=== PATIENT | female | born 1990 | race Two or more races ===

== ENCOUNTER 2025-06-07 08:34 | Inpatient (IN) | payer OTHER, MEDICAID ==
[~2025-06-07] VITALS: Ht 177.8 cm; Wt 149.0 kg
[2025-06-07] VITALS (28 sets, daily range): BP systolic 130–158; BP diastolic 71–90; PULSE 122–140; RESP 15–38; TEMP 98.6–99.4; O2SAT 86–97
[2025-06-07 09:37] LABS: Hematocrit 49.6 % (36.0-46.0); Hemoglobin 16.7 g/dL (12.2-16.2); Mean Corpuscular Hemoglobin 31.4 pg (28.0-32.0); Mean Corpuscular Volume 93.5 fL (80.0-100.0); Nucleated Red Blood Cells % 0.1 %
[2025-06-07] MEDS: ONDANSETRON HCL 4 MG/2 ML VIAL IV ONE (09:40)
[2025-06-07] MEDS: hydrALAZINE HCL 20 MG/ML VL IV ONE (09:41)
--- NOTE | 2025-06-07 09:45 | ED.PDOC ---
GI ASSESSMENT HPI Comments Chivo Santizo is a 35-year-old female, with past medical history of hypertension, morbid obesity and hyperlipidemia. The patient came to the ED with chief complain of 2 days of abdominal pain, 6/10, stabbing-like, localized in the epigastric area, that irradiates to the right upper quadrant, associated with nausea, vomit > #7 times per day, of gastric content and constipation, last BM 2 days ago. Today, the nausea and vomit worsen and the abdominal pain progressed to 8/10, this prompted her visit to the ED. In the ED, her BP: 212/153mmHg, HR: 147, EKG: sinus tachycardia. On further questioning the patient reports she is not compliant with her high blood pressure medication. The patient will be admitted for further assessment and management. Chief Complaint: Nausea/Vomiting Time Seen by MD: 08:39 Reviewed Notes: Nurses Notes, Medications, Allergies Allergies: Coded Allergies: NO KNOWN ALLERGIES (Unverified , 06/07/25) Information Source: Patient Mode of Arrival: Ambulatory Timing: Days Duration: Since onset Vomitus: Food Particles Severity: Moderate Recent: None Recent Hx of: None Pain Location: Epigastric, RUQ Associated sign and symptoms: Nausea, Vomiting, Constipation Past Medical History PAST MEDICAL HISTORY: High Lipids, HTN Surgical History: Denies all surgeries HUM[employer] RESOURCE CONSULTANT History: Denies all HUMAN RESOURCE CONSULTANT Hx LMP Per the patient 1 year ago, she says she is on control pills. Family History Family History: Reviewed,noncontributory to illness Social History Smoker: Other (Nicotine vape, everyday. ) Alcohol: Heavy (5 "claws drinks" or 7 shots per day. ) Drugs: Denies Drug Use Lives In: Home Constitutional: denies: chills, diaphoresis, fatigue, fever, malaise, sweats, weakness, others EENTM: denies: blurred vision, double vision, ear bleeding, ear discharge, ear drainage, ear pain, ear ringing, eye pain, eye redness, hearing loss, mouth pain, mouth swelling, nasal discharge, nose bleeding, nose congestion, nose pain, photophobia, tearing, throat pain, throat swelling, voice changes, others Respiratory: denies: cough, hemoptysis, orthopnea, SOB at rest, shortness of breath, SOB with excertion, stridor, wheezing, others Cardiovascular: denies: chest pain, dizzy spells, diaphoresis, Dyspnea on exertion, edema, irregular heart beat, left arm pain, lightheadedness, palpitations, PND, syncope, others Gastrointestinal: reports: abdominal pain, constipated, nausea, vomiting Genitourinary: denies: abnormal vagina bleeding, burning, dyspareunia, dysuria, flank pain, frequency, hematuria, incontinence, pain, , vagina discharge, urgency, others Neurological: denies: dizziness, fainting, headache, left sided numbness, left sided weakness, numbness, paresthesia, pre-existing deficit, right sided numbness, right sided weakness, seizure, speech problems, tingling, tremors, weakness, others Musculoskeletal: denies: back pain, gout, joint pain, joint swelling, muscle pain, muscle stiffness, neck pain, others Integumetry: denies: bruises, change in color, change in hair/nails, dryness, laceration, lesions, lumps, rash, wounds, others Allergic/Immunocompromised: denies: Difficulty Healing, Frequent Infections, Hives, Itching, others Hematologic/Lymphatic: denies: anemia, blood clots, easy bleeding, easy bruising, swollen glands, others Endocrine: denies: excessive hunger, excessive sweating, excessive thirst, excessive urination, flushing, intolerance to cold, intolerance to heat, unexplained weight gain, unexplained weight loss, others Psychiatric: denies: anxiety, bipolar disorder, depression, hopeless, panic disorder, schizophrenia, sleepless, suicidal, others Physical Exam Exam Comments Alert, orientedx3, morbidly obese. General Appearance: Moderate Distress HEENT: Normal ENT Inspection, Pharynx Normal, TMs Normal Neck: Full Range of Motion, Non-Tender, Normal, Normal Inspection Respiratory: Chest Non-Tender, Lungs Clear, No Accessory Muscle Use, No Re spiratory Distress, Normal Breath Sounds Cardiovascular: Normal Peripheral Pulses, Regular Rate/Rhythm, Tachycardia (130) Breast Exam: Deferred Gastrointestinal: Normal Bowel Sounds, Soft, Tenderness (Tenderness to deep palpation on epigastric and RUQ) Genitalia: Deferred Pelvic: Deferred Rectal: Deferred Extremities: No calf tenderness, Normal capillary refill, Normal range of motion, Non-tender, Pedal edema Musculoskeletal : Apperance: Normal Neurologic: Alert, binding folder machine II-XII nml as Tested, No Motor Deficits, Normal Affect, Normal Mood, No Sensory Deficits Cerebellar Function: Normal Reflexes: Normal Skin: Dry, Normal Color, Warm Lymphatic: No Adenopathy EKG EKG : Pulse Rate (adult): 134 Cardiac Rhythm: NSR Block: None Hypertrophy: LVH ST: Normal Comments Sinus tachycardia Left atrial enlargement & LVH Borderline T waves abnormalities, inferior leads. Was a procedure done? Was a procedure done?: No GI differential Dx Differential Diagnosis: Bowel Obstruction, Cholecystitis, Constipation, Gastritis/PUD, Gastroenteritis, Pancreatitis, UTI, Electrolyte Imbalance, Kidney Stone, Other Other Differential Diagnosis #hypertensive emergency #R/O hepatic hematoma. X-Ray, Labs, Meds, VS Vital Signs Date Time Temp Pulse Resp B/P (MAP) Pulse Ox O2 Delivery O2 Flow Rate FiO2 06/07/25 13:15 114 210/129 06/07/25 12:15 135 209/129 06/07/25 12:05 97.8 137 19 209/129 (155) 92 97.8 06/07/25 11:33 140 16 204/139 06/07/25 11:00 132 21 204/126 (152) 92 06/07/25 10:13 141 25 201/126 06/07/25 09:45 134 06/07/25 09:41 205/140 06/07/25 09:22 140 25 95 Room Air* 0 21 06/07/25 09:20 98.8 128 25 205/140 (161) 95 98.8 06/07/25 08:45 134 06/07/25 08:37 98.8 147 18 212/153 96 98.8 Lab Test 06/07/25 12:57 06/07/25 10:33 06/07/25 09:26 Range/Units Troponin I High Sensitivity Pending 24 27 </=34 ng/L Beta HCG, Quantitative < 0.0 L 1.5-4.2 mIU/mL White Blood Count 9.8 4.4-10.8 10^3/uL Red Blood Count 5.31 H 4.0-5.20 10^6/uL Hemoglobin 16.7 H 12.2-16.2 g/dL Hematocrit 49.6 H 36.0-46.0 % Mean Corpuscular Volume 93.5 80.0-100.0 fL Mean Corpuscular Hemoglobin 31.4 28.0-32.0 pg Mean Corpuscular Hemoglobin Concent 33.6 32.0-36.0 g/dL Red Cell Distribution Width 14.8 H 11.8-14.3 % Platelet Count 285 140-450 10^3/uL Mean Platelet Volume 9.4 6.9-10.8 fL Neutrophils (%) (Auto) 84.4 H 37.0-80.0 % Lymphocytes (%) (Auto) 9.8 L 10.0-50.0 % Monocytes (%) (Auto) 5.3 0.0-12.0 % Eosinophils (%) (Auto) 0.1 0.0-7.0 % Basophils (%) (Auto) 0.4 0.0-2.0 % Neutrophils # (Auto) 8.3 1.6-8.6 10 ^3/uL Lymphocytes # (Auto) 1.0 0.4-5.4 10 ^3/uL Monocytes # (Auto) 0.5 0-1.3 10 ^3/uL Eosinophils # (Auto) 0 0-0.8 10 ^3/uL Basophils # (Auto) 0 0-0.2 10 ^3/uL Nucleated Red Blood Cells 0.1 % Sodium Level 140 136-145 mmol/L Potassium Level 4.2 3.5-5.1 mmol/L Chloride Level 99 98-107 mmol/L Carbon Dioxide Level 26 20-31 mmol/L Anion Gap 15 5-15 Blood Urea Nitrogen 13 9-23 mg/dL Creatinine 1.68 H 0.550-1.02 mg/dL Glomerular Filtration Rate Calc 40 >90 mL/min BUN/Creatinine Ratio 7.7 L 10.0-20.0 Serum Glucose 114 H 74-106 mg/dL Calcium Level 9.9 8.7-10.4 mg/dL Total Bilirubin 2.5 H 0.2-1.0 mg/dL Aspartate Amino Transferase (AST) 50 H 13-40 U/L Alanine Aminotransferase (ALT) 58 H 7-40 U/L Alkaline Phosphatase 48 46-116 U/L Total Protein 8.1 5.7-8.2 g/dL Albumin 5.0 H 3.2-4.8 g/dL Lipase 147 H 12-53 U/L Plasma/Serum Blood Alcohol 6.2 <10 mg/dL Current Medications Medications (Trade) Dose Ordered Sig/Bobby Route Start Time Stop Time Status Last Admin Hydralazine HCl (Apresoline Injection) 10 mg ONCE ONCE IV 06/07/25 09:15 06/07/25 09:23 DC 06/07/25 09:41 Ondansetron HCl (Zofran) 4 mg ONCE ONCE IV 06/07/25 09:30 06/07/25 09:31 DC 06/07/25 09:40 Morphine Sulfate 2 mg ONCE ONCE IV 06/07/25 09:45 06/07/25 09:46 DC 06/07/25 10:13 Labetalol HCl (Labetalol HCl) 10 mg ONCE ONCE IV 06/07/25 12:00 06/07/25 12:01 DC 06/07/25 12:15 X-Ray, Labs, Meds, VS Comment 9:47 The patient has been reassessed. VS: BP is still elevated; 201/126mmHg IV hydralazine was given CBC: WBC: 9.8mg/dl, Hb: 16.7 CMP: Na: 140, Crea: 1.68 GFR 40, AST: 50, ALT58 Lipase 147 11:00 am The patient has been reassessed. VS: BP is still elevated; 209/129mmHg IV Labetalol was given 13:20 The patient has been reassessed. VS: BP is still elevated; 209/129mmHg Clonidine was given CT abd/pel: 1. Inflammatory stranding along the margin of the pancreatic head and uncinate process and the 2nd segment of the duodenum. 2. Correlate for groove pancreatitis/duodenitis. Abdominal pain has improved 6/10, vomit has stopped, nausea has improved. Images Reviewed?: Images reviewed and evaluated by me (and Dr. Szymanski) Time of 1ST Reevaluation: 09:47 Reevaluation 1ST: Improved Time of 2ND Reevaluation: 11:00 Reevaluation 2ND: Unchanged Time of 3RD Reevaluation: 13:20 Reevaluation 3RD: Improved Patient Education/Counseling: Diagnosis, Treatment, Prognosis, Need For Follow Up Family Education/Counseling: No Family Present SEPSIS Sepsis Screen Date sepsis recognized/suspect: Jun 07, 2025 Time Sepsis recognized/suspect: 0839 Recent Procedure: No On Antibiotic Therapy: No Respiratory Rate >20: No Heart Rate >90: Yes Temp<36 C (96.8 F) or >38.3 C: No SBP <90 or MAP <65 mmHG: No New Acute Mental Status Change: No Is the patient on CPAP, BIPAP,: No Physician Orders Electrocardigram (06/07/25 08:56) Drug Screen (06/07/25 09:16) Urinalysis (06/07/25 09:16) Chest Portable (06/07/25 09:16) Test, Urine (06/07/25 09:16) Troponin-I Hs (06/07/25 12:45) Ct Ab Pel With Iv Con Only (06/07/25 10:38) Npo Except Ice Chips (06/07/25 13:38) Clonidine Hcl Tablet (Catapres Tablet) (06/07/25 13:45) Vital Signs Date Time Temp Pulse Resp B/P (MAP) Pulse Ox O2 Delivery O2 Flow Rate FiO2 06/07/25 13:15 114 210/129 06/07/25 12:15 135 209/129 06/07/25 12:05 97.8 137 19 209/129 (155) 92 97.8 06/07/25 11:33 140 16 204/139 06/07/25 11:00 132 21 204/126 (152) 92 06/07/25 10:13 141 25 201/126 06/07/25 09:45 134 06/07/25 09:41 205/140 06/07/25 09:22 140 25 95 Room Air* 0 21 06/07/25 09:20 98.8 128 25 205/140 (161) 95 98.8 06/07/25 08:45 134 06/07/25 08:37 98.8 147 18 212/153 96 98.8 Laboratory Tests Test 06/07/25 09:26 White Blood Count 9.8 10^3/uL (4.4-10.8) Medications Medications Dose Ordered Sig/Bobby Route Start Time Stop Time Status Last Admin Dose Admin Hydralazine HCl 10 mg ONCE ONCE IV 06/07/25 09:15 06/07/25 09:23 DC 06/07/25 09:41 Labetalol HCl 10 mg ONCE ONCE IV 06/07/25 12:00 06/07/25 12:01 DC 06/07/25 12:15 Morphine Sulfate 2 mg ONCE ONCE IV 06/07/25 09:45 06/07/25 09:46 DC 06/07/25 10:13 Ondansetron HCl 4 mg ONCE ONCE IV 06/07/25 09:30 06/07/25 09:31 DC 06/07/25 09:40 Departure 1 Departure Time of Disposition: 13:49 Impression: Primary Impression: Pancreatitis Additional Impression: Hypertensive emergency Disposition: 09 ADMITTED INPATIENT Admit to: Tele Condition: Fair Comments Goals of care discussed with the patient > 35 min. Discussed plan of care with Dr. Szymanski Code status: Full code PCP: Plan discussed with: Patient, the patient agrees with the admission plan. Critical Care Note Critical Care Time?: Yes (35 min-critical care time only) Stability Stability form required: No Heart Score Heart Score: Heart Score Response (Comments) Value History Moderate Suspicious 1 EKG Normal 0 Age <45 0 Risk Factors 1 or 2 risk factors 1 Troponin Normal limit 0 Total 2 FRIDA BERNARD RESIDENT Jun 07, 2025 09:45
[2025-06-07 09:49] LABS: Alkaline Phosphatase 48 U/L (46-116); Anion Gap 15 (5-15); BUN/Creatinine Ratio 7.7 (10.0-20.0); Blood Urea Nitrogen 13 mg/dL (9-23); Calcium 9.9 mg/dL (8.7-10.4); Carbon Dioxide 26 mmol/L (20-31); Chloride 99 mmol/L (98-107); Glucose 114 mg/dL (74-106); Potassium 4.2 mmol/L (3.5-5.1); Sodium 140 mmol/L (136-145); Total Protein 8.1 g/dL (5.7-8.2)
[2025-06-07 09:50] LABS: Alanine Aminotransferase 58 U/L (7-40); Albumin 5.0 g/dL (3.2-4.8); Bilirubin, Total 2.5 mg/dL (0.2-1.0)
[2025-06-07] MEDS: MORPHINE SULFATE 4 MG/ML SYR/VIAL IV ONE (10:13)
[2025-06-07] MEDS: MORPHINE SULFATE INJ 2 MG/ml SYRG IV ONE (10:14)
[2025-06-07] MEDS: IOHEXOL 300 MG/ML 100ML BOTTLE IJ ONE (11:31)
[2025-06-07] MEDS ORDERED: hydrALAZINE HCL 20 MG/ML VL IV ONE (12:00)
[2025-06-07] MEDS: LABETALOL HCL 20 MG/4 ML VL IV ONE (12:15)
--- NOTE | 2025-06-07 12:37 | DVH ---
CHEST RADIOGRAPH Indication: Baseline Technique: Single frontal view of the chest was obtained Comparison: None FINDINGS: Lines and Tubes: None Lungs: No focal consolidation. Pleura: No effusion. No pneumothorax. Cardiomediastinal contours: Unremarkable Bones: No acute osseous abnormality. IMPRESSION: 1. No acute cardiopulmonary disease.
--- NOTE | 2025-06-07 13:11 | DVH ---
EXAM: CT CT AB PEL WITH IV CON ONLY HISTORY: Abdominal pain TECHNIQUE: Volumetric multidetector CT images of the abdomen and pelvis were obtained after the admin istration of intravenous contrast. All CT scans at this facility use dose modulation, iterative recon struction, and/or weight based dosing when appropriate to reduce radiation dose to as low as reasonab ly achievable. COMPARISON: None FINDINGS: [LOWER CHEST]: The partially visualized lung bases are clear without a pleural effusion. [LIVER]: Normal hepatic size without suspicious focal lesion. [GALLBLADDER AND BILIARY TREE]: No cholelithiasis. [SPLEEN]: Unremarkable. [PANCREAS]: Edema along the anterior lateral margin of the pancreatic head uncinate process [ADRENAL GLANDS]: Unremarkable [KIDNEYS]: No hydronephrosis. No nephroureterolithiasis. [BLADDER]: Unremarkable for the degree distention. [REPRODUCTIVE ORGANS]: Unremarkable. [BOWEL/MESENTERY]: Stomach is normal. Inflammatory stranding along the margin of the versus 2nd segme nt of the duodenum and lateral margin of the pancreatic head. Correlate for groove pancreatitis/duode nitis [ASCITES]: Absent [LYMPHADENOPATHY]: No pathologically enlarged lymph nodes by CT size criteria [VASCULATURE]: No aneurysmal dilatation. [ABDOMINAL WALL]: Unremarkable. [MUSCULOSKELETAL]: No acute fracture or aggressive focal osseous lesion. Multifocal degenerative smith ge of the visualized spine. IMPRESSION: 1. Inflammatory stranding along the margin of the pancreatic head and uncinate process and the 2nd se gment of the duodenum. 2. Correlate for groove pancreatitis/duodenitis.
[2025-06-07] MEDS: LORazepam 2MG/ML-1ML VIAL ONE (14:20)
[2025-06-07] MEDS: SODIUM CHLORIDE 0.9% 1,000 ML IV ONE ×2 (14:30→14:43)
[2025-06-07] MEDS: LORazepam 2MG/ML-1ML VIAL IV ONE (14:43)
[2025-06-07] MEDS ORDERED: DOCUSATE SOD 100 MG CAP PO PRN (15:00)
[2025-06-07] MEDS ORDERED: NITROGLYCERIN 0.4 MG SL TAB SL PRN (15:00)
[2025-06-07] MEDS ORDERED: MORPHINE SULFATE INJ 2 MG/ml SYRG IV PRN (15:00)
[2025-06-07] MEDS ORDERED: ACETAMINOPHEN 325 MG TAB PO PRN (15:00)
--- NOTE | 2025-06-07 15:27 | DVHHP2 ---
History of Present Illness Reason for Visit: abdominal pain History of Present Illness Chivo Dodson is a 35-year-old female with past medial history of hypertension, who came to the hospital for nausea and vomiting. Patient states she has been nauseated and vomiting for 4 days. She thought it was food poisoning at first. When her symptoms did not improve after a couple days she came to the [facility]. She state she has been barely able to eat or keep any water down the last couple of days. She also states that she is a daily drinker of 5 white claws and about 7 shots of hard liquor a day. She has not been able to drink since getting sick, last drink was about 3 days ago. Patient states she does not take her blood pressure medication daily as prescribed, she did take it yesterday. While in the ER the patient's blood pressure was in the 200's for hours despite multiple medications given. Patient will be admitted to ICU and started on vasodilator. Cardiovascular: HTN Smoke: <1 pack per day (Vape) ALCOHOL: heavy (5 white claws and 7 shots of liquor a day) Drugs: None Lives: with Family Domestic Violence: Neg Review of Systems Constitutional: No: Fever, Chills, Sweats, Weakness, Malaise, Other Eyes: No: Pain, Vision change, Conjunctivae inflammation, Eyelid inflammation, Other, Redness ENT: No: Ear pain, Ear discharge, Nose pain, Nose discharge, Nose congestion, Mouth pain, Mouth swelling, Throat pain, Throat swelling, Other Respiratory: No: Cough, Dry, Shortness of breath, SOB with excertion, Wheezing, Hemoptysis, Pleuritic Pain, Sputum, Wheezing, Other Cardiovascular: No: Chest Pain, Palpitations, Orthopnea, Paroxysmal Noc. Dyspnea, Edema, Lt Headedness, Other Gastrointestinal: Nausea, Vomiting, Abdominal Pain; No: Diarrhea, Constipation, Melena, Hematochezia, Other Genitourinary: No Dysuria, No Frequency, No Incontinence, No Hematuria, No Retention, No Other Musculoskeletal: No: other, neck pain, shoulder pain, arm pain, back pain, hand pain, leg pain, foot pain Skin: No: Rash, Lesions, Jaundice, Bruising, Other Neurological: No: Weakness, Numbness, Incoordination, Change in speech, Confusion, Seizures, Other Allergies: Coded Allergies: NO KNOWN ALLERGIES (Unverified , 06/07/25) Medications Current Medications Medications Dose Ordered Sig/Bobby Route Start Time Stop Time Status Last Admin Dose Admin Chlordiazepoxide HCl 50 mg Q8HR PO 06/07/25 14:45 06/08/25 06:01 Chlordiazepoxide HCl 50 mg Q12H PO 06/08/25 18:00 06/09/25 06:01 Chlordiazepoxide HCl 25 mg Q12H PO 06/09/25 18:00 06/10/25 06:01 Chlordiazepoxide HCl 25 mg QAM PO 06/10/25 07:00 06/10/25 07:01 UNV Exam Vital Signs Vital Signs Date Time Temp Pulse Resp B/P (MAP) Pulse Ox O2 Delivery O2 Flow Rate FiO2 06/07/25 14:06 192/125 06/07/25 13:15 114 06/07/25 12:05 97.8 19 92 97.8 06/07/25 09:22 Room Air* 0 21 General Appearance: Alert, Oriented X3, Cooperative, moderate distress HEENT: Atraumatic, PERRLA Respiratory: Clear to auscultation, Normal air movement Cardiovascular: Normal S1, Normal S2, Other (ST) Abdominal: Normal bowel sounds, Soft, Other (abdominal tenderness) Extremities: No clubbing, No cyanosis, No edema, Normal pulses Skin: No rashes, No breakdown, No significant lesion Neuro: Normal gait, Normal speech, Strength at 5/5 X4 ext Psych/Mental Status: Mental status NL, Mood NL Labs/Xrays Labs Test 06/07/25 12:57 06/07/25 10:33 06/07/25 09:26 Range/Units Troponin I High Sensitivity 27 </=34 ng/L Beta HCG, Quantitative < 0.0 L 1.5-4.2 mIU/mL White Blood Count 9.8 4.4-10.8 10^3/uL Red Blood Count 5.31 H 4.0-5.20 10^6/uL Hemoglobin 16.7 H 12.2-16.2 g/dL Hematocrit 49.6 H 36.0-46.0 % Mean Corpuscular Volume 93.5 80.0-100.0 fL Mean Corpuscular Hemoglobin 31.4 28.0-32.0 pg Mean Corpuscular Hemoglobin Concent 33.6 32.0-36.0 g/dL Red Cell Distribution Width 14.8 H 11.8-14.3 % Platelet Count 285 140-450 10^3/uL Mean Platelet Volume 9.4 6.9-10.8 fL Neutrophils (%) (Auto) 84.4 H 37.0-80.0 % Lymphocytes (%) (Auto) 9.8 L 10.0-50.0 % Monocytes (%) (Auto) 5.3 0.0-12.0 % Eosinophils (%) (Auto) 0.1 0.0-7.0 % Basophils (%) (Auto) 0.4 0.0-2.0 % Neutrophils # (Auto) 8.3 1.6-8.6 10 ^3/uL Lymphocytes # (Auto) 1.0 0.4-5.4 10 ^3/uL Monocytes # (Auto) 0.5 0-1.3 10 ^3/uL Eosinophils # (Auto) 0 0-0.8 10 ^3/uL Basophils # (Auto) 0 0-0.2 10 ^3/uL Nucleated Red Blood Cells 0.1 % Sodium Level 140 136-145 mmol/L Potassium Level 4.2 3.5-5.1 mmol/L Chloride Level 99 98-107 mmol/L Carbon Dioxide Level 26 20-31 mmol/L Anion Gap 15 5-15 Blood Urea Nitrogen 13 9-23 mg/dL Creatinine 1.68 H 0.550-1.02 mg/dL Glomerular Filtration Rate Calc 40 >90 mL/min BUN/Creatinine Ratio 7.7 L 10.0-20.0 Serum Glucose 114 H 74-106 mg/dL Calcium Level 9.9 8.7-10.4 mg/dL Total Bilirubin 2.5 H 0.2-1.0 mg/dL Aspartate Amino Transferase (AST) 50 H 13-40 U/L Alanine Aminotransferase (ALT) 58 H 7-40 U/L Alkaline Phosphatase 48 46-116 U/L Total Protein 8.1 5.7-8.2 g/dL Albumin 5.0 H 3.2-4.8 g/dL Lipase 147 H 12-53 U/L Plasma/Serum Blood Alcohol 6.2 <10 mg/dL CHEST RADIOGRAPH FINDINGS: Lines and Tubes: None Lungs: No focal consolidation. Pleura: No effusion. No pneumothorax. Cardiomediastinal contours: Unremarkable Bones: No acute osseous abnormality. IMPRESSION: 1. No acute cardiopulmonary disease. EXAM: CT CT AB PEL WITH IV CON ONLY FINDINGS: [LOWER CHEST]: The partially visualized lung bases are clear without a pleural effusion. [LIVER]: Normal hepatic size without suspicious focal lesion. [GALLBLADDER AND BILIARY TREE]: No cholelithiasis. [SPLEEN]: Unremarkable. [PANCREAS]: Edema along the anterior lateral margin of the pancreatic head uncinate process [ADRENAL GLANDS]: Unremarkable [KIDNEYS]: No hydronephrosis. No nephroureterolithiasis. [BLADDER]: Unremarkable for the degree distention. [REPRODUCTIVE ORGANS]: Unremarkable. [BOWEL/MESENTERY]: Stomach is normal. Inflammatory stranding along the margin of the versus 2nd segment of the duodenum and lateral margin of the pancreatic head. Correlate for groove pancreatitis/duodenitis [ASCITES]: Absent [LYMPHADENOPATHY]: No pathologically enlarged lymph nodes by CT size criteria [VASCULATURE]: No aneurysmal dilatation. [ABDOMINAL WALL]: Unremarkable. [MUSCULOSKELETAL]: No acute fracture or aggressive focal osseous lesion. Multifocal degenerative change of the visualized spine. IMPRESSION: 1. Inflammatory stranding along the margin of the pancreatic head and uncinate process and the 2nd segment of the duodenum. 2. Correlate for groove pancreatitis/duodenitis. SEPSIS Sepsis Screen Date sepsis recognized/suspect: Jun 07, 2025 Time Sepsis recognized/suspect: 925 Recent Procedure: No On Antibiotic Therapy: No Respiratory Rate >20: Yes Heart Rate >90: Yes Temp<36 C (96.8 F) or >38.3 C: No SBP <90 or MAP <65 mmHG: No New Acute Mental Status Change: No Is the patient on CPAP, BIPAP,: No Physician Orders Electrocardigram (06/07/25 08:56) Drug Screen (06/07/25 09:16) Urinalysis (06/07/25 09:16) Chest Portable (06/07/25 09:16) Test, Urine (06/07/25 09:16) Ct Ab Pel With Iv Con Only (06/07/25 10:38) Npo Except Ice Chips (06/07/25 13:38) Sodium Chloride 0.9% (06/07/25 14:30) Sodium Chloride 0.9% (06/07/25 14:30) Ceftriaxone 1gm/50ml (Rocephin) (06/07/25 14:30) Chlordiazepoxide Hcl Capsule (Librium Ca (06/07/25 14:45) Chlordiazepoxide Hcl Capsule (Librium Ca (06/08/25 18:00) Chlordiazepoxide Hcl Capsule (Librium Ca (06/09/25 18:00) Admit (06/07/25 14:48) Code Status (06/07/25 14:48) Hydrocodone-Acet 5/325mg Tab ([place] 5/32 (06/07/25 15:00) Ondansetron Hcl (Zofran) (06/07/25 15:00) Docusate Sodium Capsule (Colace Capsule) (06/07/25 15:00) Complete Blood Count (06/08/25 04:00) Comprehensive Metabolic Panel (06/08/25 04:00) Npo (Nothing By Mouth) Diet (06/07/25 Dinner) Condition: Serious (06/07/25 14:48) Acetaminophen Tablet (Tylenol Tablet) (06/07/25 15:00) Nitroglycerin Sublingual (Ntrostat Subli (06/07/25 15:00) Morphine Sulfate Injection (06/07/25 15:00) Stat Ekg For Chest Pain (06/07/25 14:48) Notify Md Of Changes From Base (06/07/25 14:48) Pocket Grinder Operator For 24 Hours (06/07/25 14:48) Emergency Dysrhythmia Protocol (06/07/25 14:48) Rhythm Strips Once Every Shift (06/07/25 14:48) Oxygen By Nasal Cannula (06/07/25 14:48) Chlordiazepoxide Hcl Capsule (Librium Ca (06/11/25 07:00) Vital Signs Date Time Temp Pulse Resp B/P (MAP) Pulse Ox O2 Delivery O2 Flow Rate FiO2 06/07/25 14:06 192/125 06/07/25 13:15 114 210/129 06/07/25 12:15 135 209/129 06/07/25 12:05 97.8 137 19 209/129 (155) 92 97.8 06/07/25 11:33 140 16 204/139 06/07/25 11:00 132 21 204/126 (152) 92 06/07/25 10:13 141 25 201/126 06/07/25 09:45 134 06/07/25 09:41 205/140 06/07/25 09:22 140 25 95 Room Air* 0 21 06/07/25 09:20 98.8 128 25 205/140 (161) 95 98.8 06/07/25 08:45 134 06/07/25 08:37 98.8 147 18 212/153 96 98.8 Laboratory Tests Test 06/07/25 09:26 White Blood Count 9.8 10^3/uL (4.4-10.8) Medications Medications Dose Ordered Sig/Bobby Route Start Time Stop Time Status Last Admin Dose Admin Ceftriaxone Sodium 50 ml @ 100 mls/hr ONCE ONCE IV 06/07/25 14:30 06/07/25 14:59 06/07/25 14:47 100 MLS/HR Clonidine HCl 0.2 mg ONCE ONCE PO 06/07/25 13:45 06/07/25 13:46 DC 06/07/25 14:06 0.2 MG Hydralazine HCl 10 mg ONCE ONCE IV 06/07/25 09:15 06/07/25 09:23 DC 06/07/25 09:41 10 MG Labetalol HCl 10 mg ONCE ONCE IV 06/07/25 12:00 06/07/25 12:01 DC 06/07/25 12:15 10 MG Lorazepam 1 mg ONCE ONCE IV 06/07/25 14:15 06/07/25 14:21 DC 06/07/25 14:43 1 MG Morphine Sulfate 2 mg ONCE ONCE IV 06/07/25 09:45 06/07/25 09:46 DC 06/07/25 10:13 2 MG Ondansetron HCl 4 mg ONCE ONCE IV 06/07/25 09:30 06/07/25 09:31 DC 06/07/25 09:40 4 MG Sodium Chloride 1,000 ml @ 1,000 mls/hr Q1H ONCE IV 06/07/25 14:30 06/07/25 15:29 06/07/25 14:43 1,000 MLS/HR Assessment/Plan Assessment/Plan Assessment: Hypertensive emergency, Pancreatitis, ETOH dependance, Obesity, Noncompliance, Plan: Admit to ICU, Start Nicardipine IV drip, CIWA protocol, Liver ultrasound, Lipid panel, A1c, TSH, IV hydration, Librium tapering dose, Lipase and amylase in am, Plan discussed with: Patient My Orders Orders - ADARSH INGRAM Procedure Category Date Status Time Sodium Chloride 0.9% PHA 06/07/25 In Process 14:30 Chlordiazepoxide Hcl PHA 06/07/25 In Process Capsule (Librium Ca 14:45 Chlordiazepoxide Hcl PHA 06/08/25 In Process Capsule (Librium Ca 18:00 Chlordiazepoxide Hcl PHA 06/09/25 In Process Capsule (Librium Ca 18:00 Admit ADMIT 06/07/25 Transmitted 14:48 Code Status CODE 06/07/25 Transmitted 14:48 Hydrocodone-Acet PHA 06/07/25 Logged 5/325mg Tab ([place] 15:00 Ondansetron Hcl PHA 06/07/25 Logged (Zofran) 15:00 Docusate Sodium PHA 06/07/25 Logged Capsule (Colace 15:00 Complete Blood Count LAB 06/08/25 Verified 04:00 Comprehensive LAB 06/08/25 Verified Metabolic Panel 04:00 Npo (Nothing By DIET 06/07/25 Transmitted Mouth) Diet Dinner Condition: Serious CATHY 06/07/25 In Process 14:48 Acetaminophen Tablet PHA 06/07/25 Logged (Tylenol Tablet) 15:00 Nitroglycerin PHA 06/07/25 Logged Sublingual (Ntrostat 15:00 Morphine Sulfate PHA 06/07/25 Logged Injection 15:00 Stat Ekg For Chest CATHY 06/07/25 In Process Pain 14:48 Notify Of Changes CATHY 06/07/25 In Process From Base 14:48 Pocket Grinder Operator For CATHY 06/07/25 In Process 24 Hours 14:48 Emergency Dysrhythmia CATHY 06/07/25 In Process Protocol 14:48 Rhythm Strips Once CATHY 06/07/25 In Process Every Shift 14:48 Oxygen By Nasal RT 06/07/25 Transmitted Cannula 14:48 Chlordiazepoxide Hcl PHA 06/11/25 In Process Capsule (Librium Ca 07:00 Date of Service: Jun 07, 2025 Billing Provider: ADARSH INGRAM Common Visit Codes: [id number] INP/OBS CARE (HIGH) ADARSH INGRAM Jun 07, 2025 15:27
[2025-06-07] MEDS ORDERED: MORPHINE SULFATE 4 MG/ML SYR/VIAL IV PRN (15:30)
[2025-06-07] MEDS: MULTIPLE VITAMIN TAB PO ONE (16:10)
[2025-06-07] MEDS: FOLIC ACID 1 MG TAB PO ONE (16:10)
[2025-06-07] MEDS: THIAMINE HCL 100 MG TAB PO ONE (16:10)
[2025-06-07 16:58] LABS: Urine Protein, UAD 3+ (Negative)
[2025-06-07 17:05] LABS: Opiate Scree,Urine Neg (NEGATIVE)
[2025-06-07 17:07] LABS: Amphetamine Screen, Urine Neg (NEGATIVE); Barbiturate Scree,Urine Neg (NEGATIVE); Benzodiazephine Screen, Urine Neg (NEGATIVE); Cannabinoid Screen, Urine Neg (NEGATIVE); Cocaine Screen, Urine Neg (NEGATIVE); Phencyclidine Screen, Urine Neg (NEGATIVE)
[2025-06-07] MEDS ORDERED: AMLO1TAB22 PO (17:24)
--- NOTE | 2025-06-07 17:30 | DVH ---
INDICATION: elevated liver enzymes, ETOH abuse TECHNIQUE: Multiple real-time sonographic images of the abdomen were obtained. COMPARISON: None FINDINGS: Increased echogenicity is noted of the hepatic parenchyma consistent with steatosis. The li nikki measures 19.6 cm. No intrahepatic biliary ductal dilatation is noted. The gallbladder wall measures 1 cm and is unremarkable. No gallstones is seen. Sludge is noted in the gallbladder. The common duct is not visible No pericholecystic fluid is noted. Sonographic hines's sign is negative. The right kidney measures point cm. No hydronephrosis. The pancreas 0.1 x 1.7 by 2.4 cm hypoechoic mass. Consider MRCP for further evaluation. The visualized portions of the IVC and aorta are grossly unremarkable. IMPRESSION: 1. 19.6 cm liver with changes consistent with steatosis. 2. Sludge in the gallbladder. Common bile duct not visualized. Negative sonographic hines's sign. 3. Hypoechoic mass in the pancreatic head measuring 3.1 x 1.7 x 2.4 cm.
[2025-06-07] MEDS: HYDROcodone-ACET 5/325MG TAB PO PRN (20:41)
[2025-06-07] MEDS: LORazepam 2MG/ML-1ML VIAL IV PRN (21:41)
[2025-06-08] VITALS (87 sets, daily range): BP systolic 122–166; BP diastolic 64–103; PULSE 98–129; RESP 12–32; TEMP 99–99.8; O2SAT 83–97
[2025-06-08 03:55] LABS: Hematocrit 47.7 % (36.0-46.0); Hemoglobin 16.1 g/dL (12.2-16.2); Mean Corpuscular Hemoglobin 31.9 pg (28.0-32.0); Mean Corpuscular Volume 94.3 fL (80.0-100.0); Nucleated Red Blood Cells % 0.0 %
[2025-06-08 04:21] LABS: Albumin 4.7 g/dL (3.2-4.8); Alkaline Phosphatase 47 U/L (46-116); Anion Gap 15 (5-15); BUN/Creatinine Ratio 8.7 (10.0-20.0); Blood Urea Nitrogen 9 mg/dL (9-23); Calcium 9.5 mg/dL (8.7-10.4); Carbon Dioxide 26 mmol/L (20-31); Chloride 98 mmol/L (98-107); Glucose 89 mg/dL (74-106); Potassium 3.8 mmol/L (3.5-5.1); Sodium 139 mmol/L (136-145); Total Protein 7.7 g/dL (5.7-8.2)
[2025-06-08 04:30] LABS: Alanine Aminotransferase 42 U/L (7-40); Amylase 30 U/L (30-118); Bilirubin, Total 2.9 mg/dL (0.2-1.0); Lipase 82 U/L (12-53)
[2025-06-08] MEDS: dilTIAZem 25 MG/5 ML VIAL IV ONE (05:30)
[2025-06-08] MEDS: ONDANSETRON HCL 4 MG/2 ML VIAL IV PRN (05:51)
--- NOTE | 2025-06-08 08:24 | ECG ---
[facility] Test Date: 2025-06-07 Test Time: 23:31:21 Pat Name: MAXIMUS BAILEY Department: ICU Room: [address] [place] [address] A Gender: F Spark Tester: alicia : 1990 Requested By: FRIDA BERNARD Order Number: [id number] Reading MD: Raad Ribeiro Measurements Intervals Dennard Rate: 137 P: 53 MN: 107 QRS: 25 QRSD: 87 T: -65 QT: 313 QTc: 473 Interpretive Statements Sinus tachycardia Consider left ventricular hypertrophy Nonspecific T abnormalities, inferior leads Baseline wander in lead(s) III,V1,V2,V3,V4,V5,V6 Electronically Signed On 06-10-2025 19:45:38 PDT by Raad Ribeiro Please click the below link to view image of tracing.
--- NOTE | 2025-06-08 10:06 | DVHPNRES ---
Progress Note Date Seen: Jun 08, 2025 Resident Creating Document: MINA ANDINO RESIDENT Medical Necessity Reason Pt with a Central, PICC or Fol: No Subjective Review of Systems This is a 35-year-old female with past medical history of hypertension on amlodipine, noncompliance with medication, left ovarian cyst who came to the ER with a complaint of nausea, vomiting and constipation for last 4 days. Patient also have epigastric and right flank pain which is 8/10, intermittent, aggravated on eating and drinking, tried ibuprofen which helps initially , no radiation. Her symptoms is getting worse day by day and decided come to the hospital. Patient stated she is a daily drinker of 5 white close and approximately 7 shots of liquor daily for past 2 years. Denies any alcohol withdrawal /seizure or recent hospitalization. Patient history of hypertension but noncompliance with her medication. PCP in [facility] and may tele visit every time never visited to primary care in person. Never seen by any stoker erector and servicer, no echo or angiogram done before. Patient history of blood transfusion needed for her menorrhagia 3 years ago in [facility]. Diagnosed left ovarian cyst, biopsy report unknown. In ER patient systolic blood pressure was 200s and admitted to ICU started vasodilator. Past medical history: Left ovarian cyst, hypertension, OCP daily Surgical history: Nothing contributory Family history: Mother thyroid disease Social history: Use vape daily, ETOH daily Allergy: No known allergy PCP: Dr. Fonseca([facility]) Home medication: OCP, amlodipine 5 mg. 06/08: Patient seen and evaluated in bedside. Patient denies any headache, photophobia, chest pain, cough. Cardizem drip discontinued and started oral Cardizem. Monitor patient closely. Objective vital signs Vital Sign Date Time Temp Pulse Resp B/P (MAP) Pulse Ox O2 Delivery O2 Flow Rate FiO2 06/08/25 06:00 116 06/08/25 06:00 25 95 Room Air* 0 21 06/08/25 04:45 153/94 (113) 06/08/25 04:00 99.2 99.2 Total Intake and Output 06/07/25 06/07/25 06/08/25 15:00 23:00 07:00 Intake Total 750 ml 230 ml Output Total 600 ml Balance 750 ml -370 ml medications Current Medications Medications Dose Ordered Sig/Bobby Route Start Time Stop Time Status Last Admin Dose Admin Chlordiazepoxide HCl 50 mg Q12H PO 06/08/25 18:00 06/09/25 06:01 Chlordiazepoxide HCl 25 mg Q12H PO 06/09/25 18:00 06/10/25 06:01 Chlordiazepoxide HCl 25 mg QAM PO 06/11/25 07:00 06/11/25 07:01 Acetaminophen/ Hydrocodone Bitart 1 tab Q4HP PRN PO 06/07/25 15:00 06/08/25 08:11 1 TAB Ondansetron HCl 4 mg Q4HP PRN IV 06/07/25 15:00 06/08/25 05:51 4 MG Docusate Sodium 100 mg BIDPRN PRN PO 06/07/25 15:00 Acetaminophen 650 mg Q6HP PRN PO 06/07/25 15:00 Nitroglycerin 0.4 mg Q5MINP PRN SL 06/07/25 15:00 Thiamine HCl 100 mg DAILY PO 06/08/25 10:00 Folic Acid 1 mg DAILY PO 06/08/25 10:00 Multivitamins 1 tab DAILY PO 06/08/25 10:00 Lorazepam 1 mg Q2HPRN PRN IV 06/07/25 15:30 06/07/25 21:41 1 MG Morphine Sulfate 2 mg Q30M PRN IV 06/07/25 15:30 Amlodipine Besylate 5 mg DAILY PO 06/08/25 10:00 Hold Nifedipine 30 mg DAILY PO 06/08/25 10:00 Diltiazem HCl 100 ml @ 5 mls/hr Q20H IV 06/07/25 22:45 06/08/25 00:12 5 MLS/HR Examination General Appearance: Alert, Oriented X3, Cooperative, mild distress ,obese female HEENT: Atraumatic, PERRLA Respiratory: Clear to auscultation, Normal air movement Cardiovascular: Normal S1, Normal S2, Other (ST) Abdominal: Normal bowel sounds, Soft, Other (abdominal tenderness) Extremities: No clubbing, No cyanosis, No edema, Normal pulses Skin: No rashes, No breakdown, No significant lesion Neuro: Normal gait, Normal speech, Strength at 5/5 X4 ext laboratory and microbiology Laboratory Tests 06/08/25 02:44 Test 06/08/25 02:44 Range/Units Serum Glucose 89 74-106 mg/dL Problem List/Assessment/Plan Problem List/Assessment/Plan This is a 35-year-old female with past medical history of hypertension on amlodipine, noncompliance with medication, left ovarian cyst who came to the ER with a complaint of nausea, vomiting and constipation for last 4 days. Patient also have epigastric and right flank pain which is 8/10, intermittent, aggravated on eating and drinking, tried ibuprofen which helps initially , no radiation. Patient stated she is a daily drinker of 5 white close and approximately 7 shots of liquor daily for past 2 years. Denies any alcohol withdrawal /seizure or recent hospitalization. Patient history of hypertension but noncompliance with her medication. PCP in [facility] and may tele visit every time never visited to primary care in person. In ER patient systolic blood pressure was 200s and admitted to ICU started vasodilator. S/p hydralazine, labetalol, clonidine, nifedipine drip in ER. NEUROLOGY * AO x4 * No focal weakness. CARDIOVASCULAR: Hypertensive emergency Essential hypertension Left ventricular hypertrophy * troponin level 27> 24>27 * EKG: Sinus tachycardia, heart rate 137 left ventricular hypertrophy * S/p nicardipine and currently on Cardizem drip. * Sinus tachycardia * In ER patient received hydralazine, labetalol, clonidine. * Plan: Titrate Cardizem drip and started Cardizem 120 mg ER daily, lisinopril 10 mg p.o. daily if needed. monitor blood pressure, echocardiogram. PULMONARY: Possible sleep apnea * Patient snoring and nighttime and daytime sleepiness. * X-ray chest no cardiopulmonary disease. GASTROINTESTINAL: Acute pancreatitis Hepatic steatosis GERD Pancreatic mass Transaminitis Sludge in gallbladder Hyperbilirubinemia * CT abdomen pelvis; inflammatory stranding alone with pancreatic head and uncinate process * Serum lipase level 147>82 * Liver ultrasound: 19.6 cm liver changes with steatosis, sludge in gallbladder, hypoechoic mass in the pancreatic head 3.1x 1.7x 2.4 cm * Patient received chlordiazepoxide and lorazepam in ER, * Plan: Monitor LFT, Protonix , thiamine, folic acid, multivitamin, ondansetron as needed , hepatitis profile GENITOURINARY: ZHOU secondary to hemodynamically mediated/VMN * ZHOU resolved * Avoid nephrotoxic drugs * Plan: IVF, bmp HEMATOLOGY: Leukocytosis likely due to stress/end-organ damage * Plan: CBC METABOLIC: Alcohol use disorder Nicotine dependence Vitamin-D deficiency Morbid obesity * Blood alcohol level 6.2 * U tox negative * THS 4.04, A1c 4.9, lactic acid 0.9 * CIWA score -1 * Plan: Congruent vitamin with D3 03066 units p.o. Q weekly, Ativan as needed for withdrawal. Monitor CIWA score. More than 12 minute counseling done regarding nicotine dependence. INFECTIOUS DISEASE: SIRS due to end-organ damage * No antibiotic is indicated at this time * Plan: Monitor vitals and labs Musculoskeletal/skin * No skin damage or ulceration noted. OBGYN: History of left ovarian cyst. DIET: Full liquid and advanced as tolerated DVT prophylax: SCDs GI prophylaxis: Protonix Bowel regimen: None Code status: Full code LINES/DRAINS/ACCESS: Drips: Titrated Cardizem drip Rivas catheter: None DISPOSITION: ICU Patient's status discussed with patient, boyfriend([phone]) in bedside. Critical care time spent more than 69 minutes, including patient care, chart review, and updating the family. Excluding any procedures Case discussed with Dr. Narayan Plan discussed with: Patient, Other (Nurse, boyfriend-Esteban) My Orders My Orders Orders - MINA ANDINO Procedure Category Date Status Time Vitamin D, 25-Hydroxy LAB 06/08/25 Logged 09:32 Vitamin B12 LAB 06/08/25 Logged 09:32 Thyroid Stimulating LAB 06/08/25 Logged Hormone 09:32 Lactic Acid W/ Reflex LAB 06/08/25 Logged Order 09:32 Hemoglobin A1c LAB 06/08/25 Logged 09:32 Lipid Panel LAB 06/09/25 Verified 04:00 Date of Service: Jun 08, 2025 Billing Provider: MAYE NARAYAN MD Common Visit Codes: [id number] CARE 30-74 MIN Secondary Visit Codes: [id number] CHNG SMOKING >10MIN MINA ANDINO Jun 08, 2025 10:06 MAYE NARAYAN MD Jun 10, 2025 11:56
[2025-06-08] MEDS: FOLIC ACID 1 MG TAB PO SCH (10:16)
[2025-06-08] MEDS: THIAMINE HCL 100 MG TAB PO SCH (10:16)
[2025-06-08] MEDS: MULTIPLE VITAMIN TAB PO SCH (10:17)
[2025-06-08] MEDS: LISINOPRIL 5 MG TAB PO ONE (10:30)
[2025-06-08] MEDS: dilTIAZem 120MG ER CAP PO ONE (11:08)
[2025-06-08] MEDS: PANTOPRAZOLE 40 MG TAB PO ONE (11:29)
[2025-06-08] MEDS: SODIUM CHLORIDE 0.9% 1,000 ML IV SCH (13:53)
[2025-06-08] MEDS: LORazepam 2MG/ML-1ML VIAL IV PRN (17:51)
[2025-06-08] MEDS: NORETHINDRONE 5 MG PO SCH (20:13)
--- NOTE | 2025-06-08 21:39 | DVHINCON2 ---
Date of service: Jun 08, 2025 Referring Physician Delfino Read Reason for Consultation Acute pancreatitis History of Present Illness Chivo Dodson is a 35-year-old female with past medial history of hypertension, who came to the hospital for nausea and vomiting. Patient states she has been nauseated and vomiting for 4 days. She thought it was food poisoning at first. When her symptoms did not improve after a couple days she came to the [facility]. She state she has been barely able to eat or keep any water down the last couple of days. She also states that she is a daily drinker of 5 white claws and about 7 shots of hard liquor a day. She has not been able to drink since getting sick, last drink was about 3 days ago. Patient states she does not take her blood pressure medication daily as prescribed, she did take it yesterday. While in the ER the patient's blood pressure was in the 200's for hours despite multiple medications given. Patient will be admitted to ICU and started on vasodilator. Past Medical History Cardiovascular: HTN Social History Smoke: <1 pack per day (Vape) ALCOHOL: heavy (5 white claws and 7 shots of liquor a day) Drugs: None Lives: with Family Domestic Violence: Neg Allergies: Coded Allergies: Lactose Intolerance (GI) (Verified Allergy, Intermediate, DIARRHEA, 06/08/25) Lisinopril (Verified Adverse Reaction, Mild, MIGRAINE, 06/08/25) Home Meds Reported Medications Amlodipine Besylate (Amlodipine Besylate) 5 Mg Tab, 1 TAB PO DAILY 06/07/25 Current Medications Current Medications Medications (Trade) Dose Ordered Sig/Bobby Route PRN Reason Start Time Stop Time Status Last Admin Chlordiazepoxide HCl (Librium Capsule) 50 mg Q12H PO 06/08/25 18:00 06/08/25 10:32 DC Chlordiazepoxide HCl (Librium Capsule) 25 mg Q12H PO 06/09/25 18:00 06/08/25 10:32 DC Chlordiazepoxide HCl (Librium Capsule) 25 mg QAM PO 06/11/25 07:00 06/08/25 10:32 DC Thiamine HCl 100 mg DAILY PO 06/08/25 10:00 06/08/25 10:16 Folic Acid 1 mg DAILY PO 06/08/25 10:00 06/08/25 10:16 Multivitamins (Mvi Tab) 1 tab DAILY PO 06/08/25 10:00 06/08/25 10:32 DC 06/08/25 10:17 Amlodipine Besylate (Norvasc Tablet) 5 mg DAILY PO 06/08/25 10:00 06/08/25 10:32 DC Nifedipine (Procardia Xl (Time-Release)) 30 mg DAILY PO 06/08/25 10:00 06/08/25 10:13 DC Diltiazem HCl 100 ml @ 5 mls/hr Q20H IV 06/07/25 22:45 06/08/25 11:03 DC 06/08/25 10:19 Lisinopril (Zestril Tablet) 10 mg DAILY PO 06/09/25 10:00 Diltiazem HCl (Cardizem ER Capsule) 120 mg DAILY PO 06/09/25 10:00 Pantoprazole Sodium (Protonix Tablet) 40 mg DAILY@0600 PO 06/09/25 06:00 06/08/25 12:29 DC Lorazepam (Ativan Inj) 1 mg Q4HP PRN IV ETOH-SEE PROTOCOL 06/08/25 12:30 06/08/25 17:51 Sodium Chloride 1,000 ml @ 75 mls/hr [id number] IV 06/08/25 12:30 06/08/25 13:53 Pantoprazole Sodium (Protonix) 40 mg DAILY IV 06/09/25 10:00 Patient Own Medication 1 BID PO 06/08/25 22:00 06/08/25 20:13 Vital Signs Vital Signs Date Time Temp Pulse Resp B/P (MAP) Pulse Ox O2 Delivery O2 Flow Rate FiO2 06/08/25 18:15 108 29 150/84 (106) 93 06/08/25 18:00 Room Air* 0 21 06/08/25 16:00 99.2 99.2 Physical Exam General Appearance: Alert, Oriented X3, Cooperative, mild distress ,obese female HEENT: Atraumatic, PERRLA Respiratory: Clear to auscultation, Normal air movement Cardiovascular: Normal S1, Normal S2, Abdominal: Normal bowel sounds, Soft, Extremities: No clubbing, No cyanosis, No edema, Normal pulses Skin: No rashes, No breakdown, No significant lesion Neuro: Normal gait, Normal speech, Strength at 5/5 X4 ext Labs/Diagnostic Data Labs Test 06/08/25 10:35 06/08/25 02:44 06/08/25 02:42 06/07/25 16:30 Range/Units Lactic Acid Level 0.9 0.4-2.0 mmol/L Vitamin B12 Level 350 211-911 pg/mL Vitamin D 25-Hydroxy 4.7 L 30.0-100 ng/mL White Blood Count 11.1 H 4.4-10.8 10^3/uL Red Blood Count 5.05 4.0-5.20 10^6/uL Hemoglobin 16.1 12.2-16.2 g/dL Hematocrit 47.7 H 36.0-46.0 % Mean Corpuscular Volume 94.3 80.0-100.0 fL Mean Corpuscular Hemoglobin 31.9 28.0-32.0 pg Mean Corpuscular Hemoglobin Concent 33.9 32.0-36.0 g/dL Red Cell Distribution Width 15.3 H 11.8-14.3 % Platelet Count 230 140-450 10^3/uL Mean Platelet Volume 9.6 6.9-10.8 fL Neutrophils (%) (Auto) 80.2 H 37.0-80.0 % Lymphocytes (%) (Auto) 13.3 10.0-50.0 % Monocytes (%) (Auto) 5.7 0.0-12.0 % Eosinophils (%) (Auto) 0.6 0.0-7.0 % Basophils (%) (Auto) 0.2 0.0-2.0 % Neutrophils # (Auto) 8.9 H 1.6-8.6 10 ^3/uL Lymphocytes # (Auto) 1.5 0.4-5.4 10 ^3/uL Monocytes # (Auto) 0.6 0-1.3 10 ^3/uL Eosinophils # (Auto) 0.1 0-0.8 10 ^3/uL Basophils # (Auto) 0 0-0.2 10 ^3/uL Nucleated Red Blood Cells 0.0 % Sodium Level 139 136-145 mmol/L Potassium Level 3.8 3.5-5.1 mmol/L Chloride Level 98 98-107 mmol/L Carbon Dioxide Level 26 20-31 mmol/L Anion Gap 15 5-15 Blood Urea Nitrogen 9 9-23 mg/dL Creatinine 1.04 #H 0.550-1.02 mg/dL Glomerular Filtration Rate Calc 72 >90 mL/min BUN/Creatinine Ratio 8.7 L 10.0-20.0 Serum Glucose 89 74-106 mg/dL Calcium Level 9.5 8.7-10.4 mg/dL Total Bilirubin 2.9 H 0.2-1.0 mg/dL Aspartate Amino Transferase (AST) 44 H 13-40 U/L Alanine Aminotransferase (ALT) 42 H 7-40 U/L Alkaline Phosphatase 47 46-116 U/L Total Protein 7.7 5.7-8.2 g/dL Albumin 4.7 3.2-4.8 g/dL Amylase Level 30 30-118 U/L Lipase 82 H 12-53 U/L Thyroid Stimulating Hormone (TSH) 4.04 0.55-4.78 uIU/mL Hemoglobin A1c 4.9 <5.7 % A1C Urine Color Light-orange Yellow Urine Clarity Clear Clear Urine pH 7.5 5.0-9.0 Urine Specific Self[place] > 1.050 H 1.001-1.035 Urine Protein 3+ H Negative Urine Ketones Trace Negative Urine Blood 2+ H Negative /uL Urine Nitrite Negative Negative Urine Bilirubin Negative Negative Urine Urobilinogen 4 H Negative mg/dL Urine Leukocyte Esterase Negative Negative /uL Urine RBC 16 0 - 4 /hpf Urine Microscopic WBC 5 0-5 /HPF Urine Squamous Epithelial Cells Few <5 /hpf Urine Bacteria None seen None Seen /hpf Urine Mucus Few None Seen Urine Glucose Normal Normal mg/dL Urine Test Negative Negative Urine Opiates Screen Neg NEGATIVE Urine Fentanyl Screen Neg NEGATIVE Urine Barbiturates Screen Neg NEGATIVE Urine Phencyclidine Screen Neg NEGATIVE Urine Amphetamines Screen Neg NEGATIVE Urine Benzodiazepines Screen Neg NEGATIVE Urine Cocaine Screen Neg NEGATIVE Urine Cannabinoids Screen Neg NEGATIVE Test 06/07/25 12:57 06/07/25 10:33 06/07/25 09:26 Range/Units Troponin I High Sensitivity 27 </=34 ng/L Beta HCG, Quantitative < 0.0 L 1.5-4.2 mIU/mL Plasma/Serum Blood Alcohol 6.2 <10 mg/dL Microbiology Date/Time Source Procedure Growth Status 06/07/25 17:30 Nose MRSA Screen - Final Complete LIVER USG IMPRESSION: 1. 19.6 cm liver with changes consistent with steatosis. 2. Sludge in the gallbladder. Common bile duct not visualized. Negative sonographic hines's sign. 3. Hypoechoic mass in the pancreatic head measuring 3.1 x 1.7 x 2.[address] SCAN IMPRESSION: 1. Inflammatory stranding along the margin of the pancreatic head and uncinate process and the 2nd segment of the duodenum. 2. Correlate for groove pancreatitis/duodenitis. Problems(with codes): (1) Pancreatitis (2) Hypertensive emergency (3) Cystic mass of pancreas Plan/Recommendation Assessment and plan Likely EtOH related pancreatitis with elevated liver enzymes due to alcoholic steatohepatitis Differential diagnosis would be gallstone or gallbladder sludge induced pancreatitis Hypoactive pancreatic mass likely a pancreatic cyst or pseudocyst Lipase and liver enzymes trending down, bilirubin [facility] 2.9 [facility] suggesting good good prognosis Bedside severity index of pancreatitis is to also suggesting good prognosis Continue supportive care, clear liquid diet, IV fluid hydration, monitor labs , check CA 19-9 If liver enzymes continue to rise consider MRCP Patient will be counseled about discontinuing alcohol Plan discussed with: Other (ICU Nurse) FABY TORRES MD Jun 08, 2025 21:39
[2025-06-09] VITALS (63 sets, daily range): BP systolic 119–180; BP diastolic 59–105; PULSE 85–117; RESP 12–35; TEMP 36.9; O2SAT 91–99
[2025-06-09] MEDS: KETOROLAC TROMETH 30 MG/ML 1ML VIAL IV ONE (01:36)
[2025-06-09 03:59] LABS: Hematocrit 40.7 % (36.0-46.0); Hemoglobin 13.7 g/dL (12.2-16.2); Mean Corpuscular Hemoglobin 32.0 pg (28.0-32.0); Mean Corpuscular Volume 94.9 fL (80.0-100.0); Nucleated Red Blood Cells % 0.0 %
[2025-06-09 04:02] LABS: Anion Gap 12 (5-15); Calcium 8.8 mg/dL (8.7-10.4); Carbon Dioxide 25 mmol/L (20-31); Chloride 100 mmol/L (98-107); Potassium 3.8 mmol/L (3.5-5.1); Sodium 137 mmol/L (136-145)
[2025-06-09 04:08] LABS: BUN/Creatinine Ratio 8.4 (10.0-20.0); INR 1.07 (0.9-1.15); Partial Thromboplastin Time 29.2 SEC (24.5-34.5); Prothrombin Time 11.3 sec (9.3-11.8)
[2025-06-09 04:24] LABS: Blood Urea Nitrogen 8 mg/dL (9-23); Glucose 74 mg/dL (74-106)
[2025-06-09 04:38] LABS: Triglycerides 109 mg/dL (< 150)
[2025-06-09 04:40] LABS: Cholesterol 161 mg/dL (< 200)
[2025-06-09 04:57] LABS: HDL Cholesterol 30 mg/dL (40-59)
[2025-06-09] MEDS ORDERED: PANTOPRAZOLE 40 MG TAB PO SCH (06:00)
[2025-06-09] MEDS ORDERED: LISINOPRIL 5 MG TAB PO SCH (10:00)
[2025-06-09] MEDS: PANTOPRAZOLE 40 MG/10 ML VIAL INJ IV SCH (10:11)
[2025-06-09] MEDS: dilTIAZem 120MG ER CAP PO SCH (10:13)
[2025-06-09 12:30] LABS: Hepatitis B Surface Antigen Negative (Negative)
[2025-06-09] MEDS: LOSARTAN POTASSIUM 25 MG TAB PO SCH (12:33)
[2025-06-09 12:52] LABS: Hepatitis C Antibody Negative (Negative)
--- NOTE | 2025-06-09 16:21 | DVHDSRES ---
Discharge Summary Date of Admission Resident Creating Document: MINA ANDINO RESIDENT Jun 07, 2025 at 14:48 Date of Discharge: Jun 09, 2025 Labs/Diagnostic Data: Laboratory Results Test 06/09/25 03:02 06/08/25 10:35 06/08/25 02:44 06/08/25 02:42 White Blood Count 8.8 10^3/uL (4.4-10.8) Red Blood Count 4.29 10^6/uL (4.0-5.20) Hemoglobin 13.7 g/dL (12.2-16.2) Hematocrit 40.7 % (36.0-46.0) Mean Corpuscular Volume 94.9 fL (80.0-100.0) Mean Corpuscular Hemoglobin 32.0 pg (28.0-32.0) Mean Corpuscular Hemoglobin Concent 33.7 g/dL (32.0-36.0) Red Cell Distribution Width 14.3 % (11.8-14.3) Platelet Count 206 10^3/uL (140-450) Mean Platelet Volume 9.2 fL (6.9-10.8) Neutrophils (%) (Auto) 72.9 % (37.0-80.0) Lymphocytes (%) (Auto) 16.3 % (10.0-50.0) Monocytes (%) (Auto) 7.9 % (0.0-12.0) Eosinophils (%) (Auto) 2.5 % (0.0-7.0) Basophils (%) (Auto) 0.4 % (0.0-2.0) Neutrophils # (Auto) 6.4 10 ^3/uL (1.6-8.6) Lymphocytes # (Auto) 1.4 10 ^3/uL (0.4-5.4) Monocytes # (Auto) 0.7 10 ^3/uL (0-1.3) Eosinophils # (Auto) 0.2 10 ^3/uL (0-0.8) Basophils # (Auto) 0 10 ^3/uL (0-0.2) Nucleated Red Blood Cells 0.0 % Prothrombin Time 11.3 sec (9.3-11.8) Prothrombin Time INR 1.07 (0.9-1.15) Activated Partial Thromboplast Time 29.2 SEC (24.5-34.5) Sodium Level 137 mmol/L (136-145) Potassium Level 3.8 mmol/L (3.5-5.1) Chloride Level 100 mmol/L (98-107) Carbon Dioxide Level 25 mmol/L (20-31) Anion Gap 12 (5-15) Blood Urea Nitrogen 8 mg/dL (9-23) Creatinine 0.95 mg/dL (0.550-1.02) Glomerular Filtration Rate Calc 80 mL/min (>90) BUN/Creatinine Ratio 8.4 (10.0-20.0) Serum Glucose 74 mg/dL (74-106) Calcium Level 8.8 mg/dL (8.7-10.4) Triglycerides Level 109 mg/dL (< 150) Cholesterol Level 161 mg/dL (< 200) LDL Cholesterol 120 mg/dL (< 100) HDL Cholesterol 30 mg/dL (40-59) Hepatitis A IgM Antibody Negative Hepatitis B Surface Antigen Negative (Negative) Hepatitis B Core IgM Antibody Negative (Negative) Hepatitis C Antibody Negative (Negative) Lactic Acid Level 0.9 mmol/L (0.4-2.0) Vitamin B12 Level 350 pg/mL (211-911) Vitamin D 25-Hydroxy 4.7 ng/mL (30.0-100) Total Bilirubin 2.9 mg/dL (0.2-1.0) Aspartate Amino Transferase (AST) 44 U/L (13-40) Alanine Aminotransferase (ALT) 42 U/L (7-40) Alkaline Phosphatase 47 U/L (46-116) Total Protein 7.7 g/dL (5.7-8.2) Albumin 4.7 g/dL (3.2-4.8) Amylase Level 30 U/L (30-118) Lipase 82 U/L (12-53) Thyroid Stimulating Hormone (TSH) 4.04 uIU/mL (0.55-4.78) Hemoglobin A1c 4.9 % A1C (<5.7) Test 06/07/25 16:30 06/07/25 12:57 06/07/25 10:33 06/07/25 09:26 Urine Color Light-orange (Yellow) Urine Clarity Clear (Clear) Urine pH 7.5 (5.0-9.0) Urine Specific Gervais > 1.050 (1.001-1.035) Urine Protein 3+ (Negative) Urine Ketones Trace (Negative) Urine Blood 2+ /uL (Negative) Urine Nitrite Negative (Negative) Urine Bilirubin Negative (Negative) Urine Urobilinogen 4 mg/dL (Negative) Urine Leukocyte Esterase Negative /uL (Negative) Urine RBC 16 /hpf (0 - 4) Urine Microscopic WBC 5 /HPF (0-5) Urine Squamous Epithelial Cells Few /hpf (<5) Urine Bacteria None seen /hpf (None Seen) Urine Mucus Few (None Seen) Urine Glucose Normal mg/dL (Normal) Urine Test Negative (Negative) Urine Opiates Screen Neg (NEGATIVE) Urine Fentanyl Screen Neg (NEGATIVE) Urine Barbiturates Screen Neg (NEGATIVE) Urine Phencyclidine Screen Neg (NEGATIVE) Urine Amphetamines Screen Neg (NEGATIVE) Urine Benzodiazepines Screen Neg (NEGATIVE) Urine Cocaine Screen Neg (NEGATIVE) Urine Cannabinoids Screen Neg (NEGATIVE) Troponin I High Sensitivity 27 ng/L (</=34) Beta HCG, Quantitative < 0.0 mIU/mL (1.5-4.2) Plasma/Serum Blood Alcohol 6.2 mg/dL (<10) Other Laboratory Tests 06/09/25 03:02 Brief Hx & Hospital Course: This is a 35-year-old female with past medical history of hypertension on amlodipine, noncompliance with medication, left ovarian cyst who came to the ER with a complaint of nausea, vomiting and constipation for last 4 days. Patient also have epigastric and right flank pain which is 8/10, intermittent, aggravated on eating and drinking, tried ibuprofen which helps initially , no radiation. Her symptoms is getting worse day by day and decided come to the hospital. Patient stated she is a daily drinker of 5 white close and approximately 7 shots of liquor daily for past 2 years. Denies any alcohol withdrawal /seizure or recent hospitalization. Patient history of hypertension but noncompliance with her medication. PCP in [facility] visit every time never visited to primary care in person. Never seen by any acupuncture physician, no echo or angiogram done before. Patient history of blood transfusion needed for her menorrhagia 3 years ago in [facility]. Diagnosed left ovarian cyst, biopsy report unknown. In ER patient systolic blood pressure was 200s and admitted to ICU started vasodilator. Past medical history: Left ovarian cyst, hypertension, OCP daily Surgical history: Nothing contributory Family history: Mother thyroid disease Social history: Use vape daily, ETOH daily Allergy: No known allergy PCP: Dr. Fonseca([facility]) Home medication: OCP, amlodipine 5 mg. Hospital course: Patient admitted due to hypertensive emergency, in ER patient received hydralazine, labetalol, clonidine and continue diltiazem drip due to tachycardia. Troponin x3 negative,EKG: Sinus tachycardia, heart rate 137, left ventricular hypertrophy, CXR showed no acute cardiopulmonary disease. Echo on 06/09/2025: Concentric LVH, left atrial enlargement, EF 60% with normal right ventricular function. No effusion or vegetation seen.. Diltiazem drip titrated down and started oral antihypertensive medication, patient tolerate oral medicine well and BP in normal range. Patient had ZHOU secondary to hemodynamically mediated vasomotor nephropathy which resolved. Patient also having questionable sleep apnea recommended to follow-up with pulmonology as outpatient. Patient advised to no added salt, no concentrated salt and low-fat diet. Started losartan - hydrochlorothiazide, Amlodipine and follow-up with primary care within 1 week after discharge. Labs including CA 19- 9 should be done before follow-up. Patient abdominal pain also significantly improved with conservative treatment. CT abdomen pelvis; inflammatory stranding alone with pancreatic head and uncinate process , transaminitis resolved. also counseling done regarding alcohol abstinence. GI consult appreciated and recommended lab test and discontinuing ETOH. Patient vitals stable. Patient is hemodynamically stable for discharge. The patient has received maximum benefits from inpatient treatment. Time was given to answer patient/ parents questions and concerns in Layman terms. patient verbalized understanding and agree with treatment and follow-up. Patient was recommended to return to the ED if she experiences any worsening symptoms such as, but not limited to current symptoms. Continue current home medication. Follow-up with discharge Clinic/ PCP within 2 weeks on Thursday morning and Cardiology within 4-6 weeks after discharge . Patient educated and advised to resume home medication. Constitutional: Obese, No: Fever, Chills, Sweats, Weakness, Malaise, Other Eyes: No: Pain, Vision change, Conjunctivae inflammation, Eyelid inflammation, Other, Redness ENT: No: Ear pain, Ear discharge, Nose pain, Nose discharge, Nose congestion, Mouth pain, Mouth swelling, Throat pain, Throat swelling, Other Respiratory: Shortness of breath; No: Cough, Dry, SOB with excertion, Wheezing, Hemoptysis, Pleuritic Pain, Sputum, Wheezing, Other Cardiovascular: No: Chest Pain, Palpitations, Orthopnea, Paroxysmal Noc. Dyspnea, Edema, Lt Headedness, Other Gastrointestinal: No: Nausea, Vomiting, Abdominal Pain, Diarrhea, Constipation, Melena, Hematochezia, Other Genitourinary: No Dysuria, No Frequency, No Incontinence, No Hematuria, No Retention, No Other Musculoskeletal: No: other, neck pain, shoulder pain, arm pain, back pain, hand pain, leg pain, foot pain Skin: No: Rash, Lesions, Jaundice, Bruising, Other Neurological: No: Weakness, Numbness, Incoordination, Change in speech, Confusion, Seizures, Other Case discussed with patient, Dr. Magallon , nurse. More than 29 minute spent. Operations or Procedures ORDERING PHYSICIAN: FRIDA BERNARD PROCEDURE(s): CXRP - CHEST PORTABLE REASON: Baseline ORDER NUMBER(s): [id number], ACCESSION NUMBER(s): [id number] CHEST RADIOGRAPH Indication: Baseline Technique: Single frontal view of the chest was obtained Comparison: None FINDINGS: Lines and Tubes: None Lungs: No focal consolidation. Pleura: No effusion. No pneumothorax. Cardiomediastinal contours: Unremarkable Bones: No acute osseous abnormality. IMPRESSION: 1. No acute cardiopulmonary disease. ATED BY: JULIA SHAW Jr., DO DICTATED DATE/TIME: 06/07/25 1234 ORDERING PHYSICIAN: FRIDA BERNARD PROCEDURE(s): ABPLIV - CT AB PEL WITH IV CON ONLY REASON: Abdominal pain ORDER NUMBER(s): [id number], ACCESSION NUMBER(s): [id number] EXAM: CT CT AB PEL WITH IV CON ONLY HISTORY: Abdominal pain TECHNIQUE: Volumetric multidetector CT images of the abdomen and pelvis were obtained after the administration of intravenous contrast. All CT scans at this facility use dose modulation, iterative reconstruction, and/or weight based dosing when appropriate to reduce radiation dose to as low as reasonably achievable. COMPARISON: None FINDINGS: [LOWER CHEST]: The partially visualized lung bases are clear without a pleural effusion. [LIVER]: Normal hepatic size without suspicious focal lesion. [GALLBLADDER AND BILIARY TREE]: No cholelithiasis. [SPLEEN]: Unremarkable. [PANCREAS]: Edema along the anterior lateral margin of the pancreatic head uncinate process [ADRENAL GLANDS]: Unremarkable [KIDNEYS]: No hydronephrosis. No nephroureterolithiasis. [BLADDER]: Unremarkable for the degree distention. [REPRODUCTIVE ORGANS]: Unremarkable. [BOWEL/MESENTERY]: Stomach is normal. Inflammatory stranding along the margin of the versus 2nd segment of the duodenum and lateral margin of the pancreatic head. Correlate for groove pancreatitis/duodenitis [ASCITES]: Absent [LYMPHADENOPATHY]: No pathologically enlarged lymph nodes by CT size criteria [VASCULATURE]: No aneurysmal dilatation. [ABDOMINAL WALL]: Unremarkable. [MUSCULOSKELETAL]: No acute fracture or aggressive focal osseous lesion. Multifocal degenerative change of the visualized spine. IMPRESSION: 1. Inflammatory stranding along the margin of the pancreatic head and uncinate process and the 2nd segment of the duodenum. 2. Correlate for groove pancreatitis/duodenitis. ATED BY: RISHI SALGADO MD DICTATED DATE/TIME: 06/07/25 4085 ORDERING PHYSICIAN: ADARSH INGRAM BACKPACKERS MANAGER PROCEDURE(s): LIVUS - LIVER REASON: elevated liver enzymes, ETOH abuse ORDER NUMBER(s): [id number], ACCESSION NUMBER(s): [id number] INDICATION: elevated liver enzymes, ETOH abuse TECHNIQUE: Multiple real-time sonographic images of the abdomen were obtained. COMPARISON: None FINDINGS: Increased echogenicity is noted of the hepatic parenchyma consistent with steatosis. The liver measures 19.6 cm. No intrahepatic biliary ductal dilatation is noted. The gallbladder wall measures 1 cm and is unremarkable. No gallstones is seen. Sludge is noted in the gallbladder. The common duct is not visible No pericholecystic fluid is noted. Sonographic hines's sign is negative. The right kidney measures point cm. No hydronephrosis. The pancreas 0.1 x 1.7 by 2.4 cm hypoechoic mass. Consider MRCP for further evaluation. The visualized portions of the IVC and aorta are grossly unremarkable. IMPRESSION: 1. 19.6 cm liver with changes consistent with steatosis. 2. Sludge in the gallbladder. Common bile duct not visualized. Negative sonographic hines's sign. 3. Hypoechoic mass in the pancreatic head measuring 3.1 x 1.7 x 2.4 cm. ATED BY: JULIA SHAW Jr. DO DICTATED DATE/TIME: 06/07/25 1728 Condition at Discharge: Stable Final Diagnosis/Problems List Hypertensive emergency Left ventricular hypertrophy Acute pancreatitis ZHOU secondary to hemodynamically mediated/VMN Hepatic steatosis Alcohol use disorder Essential hypertension Vitamin-D deficiency Morbid obesity GERD Pancreatic mass/cyst Transaminitis Sludge in gallbladder Hyperbilirubinemia Possible sleep apnea SIRS due to end-organ damage History of left ovarian cyst. Nicotine dependence Leukocytosis likely due to stress/end-organ damage Discharge Disposition: Home Discharge Instruct/Medications Diet: Regular, Cardiac 2g Na,low cholest Activity: No Restrictions, As Tolerated Follow Up/Referral: PCP Outpatient clinic Thursday morning within 2 weeks after discharge Scheduled Amlodipine Besylate (Amlodipine Besylate), 1 TAB PO DAILY, (Reported) Amlodipine Besylate (Amlodipine Besylate), 10 MG PO DAILY Valsartan-Hydrochlorothiazide (Diovan Hct), 1 12.5 PO DAILY Discharge Statement: "Patient was advised to return to the ER or call 911 if any headaches, dizziness, shortness of breath, chest pain, abdominal pain, bleeding, fevers, or worsening of medical condition. Patient was counseled about treatment plan, medications, possible side effects, patientverbalized understanding. All questions were answered to the best of my ability. This discharge took greater then 30 minutes in planning, reviewing documentation, counseling the patient, and discussing with other team members." ASSESSMENT ASSESSMENT Assessment HYPERTENSIVE EMERGENCY AND ACUTE PANCREATITIS MINA ANDINO RESIDENT Jun 09, 2025 16:21
--- NOTE | 2025-06-09 17:04 | DVHSR ---
APPROVED REPORT EXAM: Two-dimensional and M-mode echocardiogram with Doppler and color Doppler. Blood Pressure: 137/89 mmHg INDICATION hypertensive emergency with rkg showing lvh RISK FACTORS Obesity: Height: 5'10, Weight: 256 DIMENSIONS LVDd4.6 (3.8-5.7cm)LA (2D)4.6 (1.9-4.0cm)Aortic Root3.3 (2.0-3.7cm) LVDs3.2 (2.5-4.0cm)LA (MM) (1.9-4.0cm)Aortic Cusp Exc1.9 (1.5-2.0cm) EF (%) 60.0 (55-70%)Rt. Atrium3.6 (1.9-4.0cm)Asc. Aorta cm IVSd1.5 (0.7-1.1cm)RV (D)4.3 (1.8-2.4cm) PWd1.6 (0.7-1.1cm) Mitral Valve MitralMitral Stenosis E wave0.59m/sMV Mean GR.mmHg A wave0.78m/sMV Peak GR.mmHg E/A ratio0.82D MVAcm2 DECEL [id number] 1/2 Timems Aortic Valve Aortic ValveAortic Stenosis V11.11m/Julieta Mean GR.5mmHg V21.48m/Julieta Peak GR.9mmHg LVOT Diameter2.5 (1.8-2.4cm)Doppler AVA3.68cm2 Pulmonic Valve V21.16m/s Other Information Technically limited study due to body habitus.patient position. Conclusion Sinus rhythm. Concentric LVH. Left atrial enlargement. RV enlargement. Valves are normal. EF of 60% with normal RV function. No pericardial effusion masses or vegetations discernible.
[2025-06-09] MEDS ORDERED: VALS80TA44 PO (17:15)
[2025-06-09] MEDS ORDERED: AMLO1TAB23 PO (17:15)
[2025-06-09] MEDS ORDERED: NORETHINDRONE 5 MG PO SCH (20:00)
--- NOTE | 2025-06-09 21:55 | DVHPN2 ---
Progress Note - Dictate Date Seen: Jun 09, 2025 (Late entryPatient seen at 3:00 p.m.) Medical Necessity Reason Pt with a Central, PICC or Fol: No Subjective No new complaints Patient is tolerating a clear liquid diet Her blood pressure is under better control Lipase is trending down vital signs Vital Sign Date Time Temp Pulse Resp B/P (MAP) Pulse Ox O2 Delivery O2 Flow Rate FiO2 06/09/25 16:15 85 93 06/09/25 16:00 25 Room Air* 0 21 06/09/25 15:43 36.9 Total Intake and Output 06/08/25 06/08/25 06/09/25 15:00 23:00 07:00 Intake Total 320 ml 1600 ml 840 ml Output Total 600 ml Balance 320 ml 1600 ml 240 ml objective General Appearance: Alert, Oriented X3, Cooperative, mild distress ,obese female HEENT: Atraumatic, PERRLA Respiratory: Clear to auscultation, Normal air movement Cardiovascular: Normal S1, Normal S2, Abdominal: Normal bowel sounds, Soft, Extremities: No clubbing, No cyanosis, No edema, Normal pulses Skin: No rashes, No breakdown, No significant lesion Neuro: Normal gait, Normal speech, Strength at 5/5 X4 ext laboratory and microbiology Laboratory Tests 06/09/25 03:02 Test 06/09/25 03:02 Range/Units Serum Glucose 74 74-106 mg/dL Problems(with codes): (1) Elevated liver enzymes (2) Alcoholic steatohepatitis (3) Cystic mass of pancreas (4) Hypertensive emergency (5) Pancreatitis Prognosis Plan Patient is requesting a discharge normal and discharge planning is in progress Patient has been counseled strongly to discontinue alcohol Outpatient follow up with GI Services to continue to monitor her labs Long-term prognosis guarded if the patient continues to drink alcohol Dietary Evaluation Review Comments: Nutrition Recommendation 1) Ensure High protein 240 ml TID 2) MVI w/ minerals 1 tab daily 3) Advance to 2gm Na diet as medically feasible Expected Outcomes/Goals: PO intake to meet >75% estimated needs GI symptoms to improve Fu 3-5 days Plan discussed with: Patient, Other (ICU Nurse) FABY TORRES MD Jun 09, 2025 21:55
--- NOTE | 2025-06-15 07:55 | ECG ---
[facility] Test Date: 2025-06-07 Test Time: 08:45:25 Pat Name: MAXIMUS BAILEY Department: ED Room: [address] [place] [address] A Gender: F [employer] Supervisor: DR CHU: 1990 Requested By: ADARSH INGRAM Order Number: [id number] Reading MD: Raad Ribeiro Measurements Intervals [place] Rate: 134 P: 57 [place]: 131 QRS: 49 QRSD: 92 T: -10 QT: 311 QTc: 465 Interpretive Statements Sinus tachycardia Left atrial enlargement Probable left ventricular hypertrophy Borderline T abnormalities, inferior leads Electronically Signed On 06-17-2025 17:52:06 PDT by Raad Ribeiro Please click the below link to view image of tracing.
== END 2025-06-09 17:52 | disposition home or self-care (01) | DRG 438 ==
LOC: ER 08:34 → OVERFLOW 14:48 → ICU WEST 17:25
PROVIDERS: ADMIT Internal Medicine Pulmonary Disease; ATTEND Internal Medicine Pulmonary Disease
DX: K85.90 Acute pancreatitis without necrosis or infection, unspecified (principal); N17.0 Acute kidney failure with tubular necrosis; R65.11 Systemic inflammatory response syndrome (SIRS) of non-infectious origin with acute organ dysfunction; I16.1 Hypertensive emergency; Z68.42 Body mass index [BMI] 45.0-49.9, adult; K86.2 Cyst of pancreas; F10.20 Alcohol dependence, uncomplicated; K21.9 Gastro-esophageal reflux disease without esophagitis; R74.01 Elevation of levels of liver transaminase levels; I10 Essential (primary) hypertension; E78.5 Hyperlipidemia, unspecified; F17.210 Nicotine dependence, cigarettes, uncomplicated; K76.0 Fatty (change of) liver, not elsewhere classified; E80.6 Other disorders of bilirubin metabolism; Y90.3 Blood alcohol level of 60-79 mg/100 ml; E66.01 Morbid (severe) obesity due to excess calories; E55.9 Vitamin D deficiency, unspecified; Z91.199 Patient's noncompliance with other medical treatment and regimen due to unspecified reason; Z88.8 Allergy status to other drugs, medicaments and biological substances
CPT/HCPCS: 36415; 71045; 74177; 76705; 80048; 80053; 80061; 80074; 80307; 80320; 81001; 81025; 82150; 82306; 82607; 83036; 83605; 83690; 84443; 84484; 84702; 85025; 85610; 85730; 87081; 93005; 93306; 99291; G0378; J1885; J2405; J2470

== ENCOUNTER 2025-06-13 15:20 | Outpatient (CLI) | payer OTHER, MEDICAID ==
[~2025-06-13 15:20] MED LIST: AMLO1TAB23 PO; VALS80TA44 PO
[2025-06-13 15:31] LABS: Hematocrit 45.8 % (36.0-46.0); Hemoglobin 15.2 g/dL (12.2-16.2); Mean Corpuscular Hemoglobin 30.8 pg (28.0-32.0); Mean Corpuscular Volume 93.3 fL (80.0-100.0); Nucleated Red Blood Cells % 0.0 %
== END 2025-06-13 17:00 | disposition home or self-care (01) ==
LOC: LAB 15:20
DX: Z00.00 Encounter for general adult medical examination without abnormal findings (principal); Z79.899 Other long term (current) drug therapy
CPT/HCPCS: 36415; 85025; 86301